=== PATIENT | male | born 1975 | race Caucasian/White ===

== ENCOUNTER 2020-12-22 07:54 | Emergency (ER) | payer OTHER ==
[2020-12-22] MEDS ORDERED: Tetracaine HCl/PF 0.5% 4 ML Bottle EYELF ONE (08:27)
--- NOTE | 2020-12-22 08:27 | EDM.PDOC ---
ED HPI GENERAL MEDICAL PROBLEM - General Chief Complaint: Eye Problems Stated Complaint: DEBRIS IN LEFT EYE Time Seen by Provider: 12/22/20 08:12 Source of Information: Reports: Patient History Limitations: Reports: No Limitations - History of Present Illness INITIAL COMMENTS - FREE TEXT/NARRATIVE: 45-year-old male presents with left eye irritation for 4 days. 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 He does not wear contact lens wear glasses normally. He admits to clear tearing from his left eye and irritation sensation. He denies blurry vision, fever, chills, headache. ROS: A 10-point review of systems, other than pertinent positives and negatives as stated per HPI, is otherwise negative Past medical history: No additional pertinent history Past Surgical history: No additional pertinent history Social history: No additional pertinent history Family history: No additional pertinent history PHYSICAL EXAM General: AOx4, GCS = 15, No distress HEENT: dry mucous membrane, injected left conjunctiva, no Cain sign, no florescein uptake, no teardrop sign, no afferent pupillary defect, no asymmetry to bilateral anterior chamber depth, PERRL, EOMI, no obvious foreign body. Neck: supple, no meningismus, no Kernig or Brudzinski Cardiac: S1S2 RRR Respiratory: CTAB, no crackles or rales, no wheezing Abdomen: Soft, nontender, no rebound or guarding, nondistended, no pulsatile mass. Back: nontender Musculoskeletal: NVI distally, no deformity Neuro: No focal deficits, CN 2 - 12 WNL. left eye Pain Score (Numeric/FACES): 2 - Related Data Home Meds: Home Meds Erythromycin Base [Erythromycin 0.5% Ophth Oint] 1 applic EYELF BID #1 tube 12/22/20 [Rx] ED ROS GENERAL - Review of Systems Review Of Systems: See Below (see dictation) ED EXAM GENERAL W FULL EYE - Physical Exam Exam: See Below (see dictation) Course - Vital Signs Last Recorded V/S: Last Vital Signs Temp 97.0 F 12/22/20 08:10 Pulse 73 12/22/20 08:10 Resp 18 12/22/20 08:10 BP 135/85 12/22/20 08:10 Pulse Ox 96 12/22/20 08:10 - Orders/Labs/Meds Orders: Active Orders 24 hr Category Date Time Status Visual Acuity [Vision Test] [RC] ASDIRECTED Care 12/22/20 08:27 Active Water, Distilled [Eye Wash Irrigation Soln] Med 12/22/20 08:49 Once 250 ml EYELF ONETIME ONE Meds: Medications Discontinued Medications Generic Name Dose Route Start Last Admin Trade Name Freq PRN Reason Stop Dose Admin Tetracaine HCl 2 ml 12/22/20 08:27 12/22/20 08:49 Tetracaine 0.5% Steri-Unit Karley EYELF 12/22/20 08:28 2 ml ASDIRECTED ONE Administration - Re-Assessments/Exams Free Text/Narrative Re-Assessment/Exam: 12/22/20 08:51 Patient feels better after 250cc morgans lense irrigation and tetracaine drop, visual acuity noted at 20/20. he is currently stable for discharge. I advised the patient to return to the ER for reevaluation if symptoms worsened, including fever, worsening pain, or any other worrisome symptoms. I instructed the patient to follow up with Dr. Benny Asencio within 2-3 days. MEDICAL DECISION MAKING: I reviewed the patients past medical records, lab and radiographic findings. I discussed the case with the patient. My differential diagnosis included: Ocular foreign body, corneal abrasion, conjunctivitis. I do not suspect globe rupture or corneal laceration, there is no Cain sign or teardrop sign or afferent pupillary defect or asymmetry to anterior chamber depth, there was no obvious trauma. He wears protective lenses at work despite cutting plastic. There was no corneal uptake, I do not suspect herpes keratitis or corneal abrasion. I do not see obvious foreign body on his exam despite the diffuse injected left conjunctiva. Departure - Departure Time of Disposition: 09:50 Disposition: Home, Self-Care 01 Condition: Good Clinical Impression: Conjunctivitis - Discharge Information *PRESCRIPTION DRUG MONITORING PROGRAM REVIEWED*: Not Applicable *COPY OF PRESCRIPTION DRUG MONITORING REPORT IN PATIENT JASSI: Not Applicable Prescriptions: Erythromycin Base [Erythromycin 0.5% Ophth Oint] 1 applic EYELF BID #1 tube Instructions: Bacterial Conjunctivitis, Adult, [id number] Referrals: Benny Asencio MD [Ordering Only Provider] - 3 Days Forms: ED Department Discharge Additional Instructions: The need for follow-up, as well as the timing and circumstances, are variable depending upon the specifics of your emergency department visit. If you don't have a primary care physician on staff, we will provide you with a referral. We always advise you to contact your personal physician following an emergency department visit to inform them of the circumstance of the visit and for follow-up with them and/or the need for any referrals to a consulting specialist. The emergency department will also refer you to a specialist when appropriate. This referral assures that you have the opportunity for follow-up care with a specialist. All of these measure are taken in an effort to provide you with optimal care, which includes your follow-up. Under all circumstances we always encourage you to contact your private physician who remains a resource for coordinating your care. When calling for follow-up care, please make the office aware that this follow-up is from your recent emergency room visit. If for any reason you are refused follow-up, please contact the [facility] Emergency Department at and asked to speak to the emergency department charge nurse. If you do not have a primary care doctor, please follow up with the clinics below within 3-5 days. [facility] [address] [place] [id number] [id number] Sepsis Event Note (ED) - Focused Exam Vital Signs: Vital Signs Temp Pulse Resp BP Pulse Ox 12/22/20 08:10 97.0 F 73 18 135/85 96 - My Orders Last 24 Hours: My Active Orders 12/22/20 08:27 Visual Acuity [Vision Test] [RC] ASDIRECTED 12/22/20 08:49 Water, Distilled [Eye Wash Irrigation Soln] 250 ml EYELF ONETIME ONE - Assessment/Plan Last 24 Hours: My Active Orders 12/22/20 08:27 Visual Acuity [Vision Test] [RC] ASDIRECTED 12/22/20 08:49 Water, Distilled [Eye Wash Irrigation Soln] 250 ml EYELF ONETIME ONE
[2020-12-22] MEDS ORDERED: Distilled Water Ophth Irrig Soln 120 ML Bottle EYELF ONE (08:49)
[2020-12-22] MEDS ORDERED: Sodium Chloride 0.9% 250 ML IV SCH (09:30)
== END 2020-12-22 09:23 | disposition home or self-care (01) ==
LOC: MW.ED 07:54
DX: H10.9 Unspecified conjunctivitis (principal)
CPT/HCPCS: 99282; 99283